=== PATIENT | male | born 1985 | race Caucasian/White ===

== ENCOUNTER 2022-09-17 01:10 | Inpatient (IN) | payer MEDICAID ==
[~2022-09-17] VITALS: Ht 182.9 cm; Wt 81.6 kg
[2022-09-17] MEDS ORDERED: HALOPERIDOL 5 MG TABLET PO PRN (01:30)
[2022-09-17] MEDS ORDERED: ZOLPIDEM TARTRATE 10 MG TABLET PO PRN (01:30)
[2022-09-17 02:01] LABS: GLUCOMETER DEV NAME(LOC) POC.BV
[2022-09-17 03:58] VITALS: BP 132/80
[2022-09-17] MEDS ORDERED: INFLUENZA VIRUS VACCINE QVS 2022-23 (6MO+)/PF 60 MCG/0.5 ML SYRINGE IM. ONE (04:00)
[2022-09-17 07:40] LABS: BASOPHILS % (AUTO) 1.1 % (0.0-2.0); EOSINOPHILS % (AUTO) 6.7 % (1.0-6.0); HEMATOCRIT 38.8 % (41-53); HEMOGLOBIN 13.4 g/dL (13.5-17.5); LYMPHOCYTES # (AUTO) 1.7 K/uL (1.0-4.8); LYMPHOCYTES % (AUTO) 28.1 % (22.0-44.0); MEAN CORPUSCULAR HGB CONC 34.6 G/dL (31.0-37.0); MEAN CORPUSCULAR VOLUME 90 fL (80-100); MONOCYTES # (AUTO) 0.8 K/uL (0.1-1.0); MONOCYTES % (AUTO) 14.1 % (2.0-9.0); PLATELET COUNT (AUTO) 264 K/uL (150-450); RED BLOOD CELL COUNT(AUTO) 4.34 MIL/uL (4.50-5.90); RED CELL DISTRIBUTION WIDTH 13.1 % (11.5-14.5)
[2022-09-17 07:56] LABS: HEMOGLOBIN A1C 5.3 % (3.8-5.6)
[2022-09-17 08:08] LABS: ALANINE AMINOTRANSFERASE 37 U/L (12-78); ALBUMIN 3.2 g/dL (3.4-5.0); ALKALINE PHOSPHATASE 69 U/L (46-116); ANION GAP 8 mmol/L (8-16); ASPARTATE AMINOTRANSFERASE 24 U/L (15-37); BILIRUBIN,TOTAL 0.2 mg/dL (0.1-1.0); CALCIUM, TOTAL 8.6 mg/dL (8.8-10.5); CARBON DIOXIDE 27 mmol/L (22-29); CHLORIDE 104 mmol/L (98-107); CHOL/HDL RATIO 2.8 (4.2-7.3); CHOLESTEROL 112 mg/dL (131-200); CREATININE 0.94 mg/dL (0.60-1.30); FREE T4 (FREE THYROXINE) 0.94 ng/dL (0.76-1.46); GLUCOSE,RANDOM 102 mg/dL (70-110); HDL CHOLESTEROL 40 mg/dL (40-60); LDL CHOL (CALC.) 50 mg/dL (0-130); POTASSIUM 4.1 mmol/L (3.5-5.1); SODIUM SERUM 139 mmol/L (136-145); THYROID STIMULATING HORMONE 1.59 uIU/mL (0.36-3.74); TOTAL PROTEIN, SERUM 6.4 g/dL (6.4-8.2); TRIGLYCERIDES 110 mg/dL (15-150); UREA NITROGEN, BLOOD 14 mg/dL (7-18)
[2022-09-17 08:09] LABS: GLOMERULAR FILTR. RATE CALC > 60 mL/min (>60)
[2022-09-17 08:19] VITALS: BP 136/92
[2022-09-17] MEDS: ARIPiprazole 5 MG TABLET PO SCH (10:31)
[2022-09-17 20:14] VITALS: BP 128/77
[2022-09-17] MEDS ORDERED: NICOTINE 14 MG/24 HOUR PATCH TD PRN (21:00)
[2022-09-17] MEDS ORDERED: ALBUTEROL SULFATE HFA 90 MCG/PUFF 8 GM INHALER IH PRN (21:00)
[2022-09-17] MEDS ORDERED: DOCUSATE SODIUM 100 MG CAPSULE PO PRN (21:00)
[2022-09-17] MEDS ORDERED: PETROLATUM,WHITE 28 GM JELLY TP PRN (21:00)
[2022-09-17] MEDS ORDERED: LOPERAMIDE HCL 2 MG CAPSULE PO PRN (21:00)
[2022-09-17] MEDS ORDERED: IBUPROFEN 400 MG TABLET PO PRN (21:00)
[2022-09-17] MEDS ORDERED: CloNIDine HCL 0.1 MG TABLET PO PRN (21:00)
[2022-09-17] MEDS ORDERED: MAG HYDROX/AL HYDROX/SIMETH ES 30 ML SUSPENSION UDCUP PO PRN (21:00)
[2022-09-17] MEDS ORDERED: GuaiFENesin/D-METHORPHAN [SUGAR-FREE] 200-20MG/10 ML SYRUP UDCUP PO PRN (21:00)
[2022-09-17] MEDS ORDERED: MAGNESIUM HYDROXIDE SUSPENSION 30 ML UDCUP PO PRN (21:00)
[2022-09-17] MEDS ORDERED: ACETAMINOPHEN 325 MG TABLET PO PRN (21:00)
[2022-09-17] MEDS ORDERED: ONDANSETRON HCL 4 MG TABLET PO PRN (21:00)
[2022-09-18 00:38] VITALS: BP 138/94
[2022-09-18] MEDS: LORazepam 2 MG TABLET PO PRN (00:42)
[2022-09-18] MEDS: ARIPiprazole 5 MG TABLET PO SCH (08:55)
[2022-09-18 10:24] VITALS: BP 124/88
[2022-09-18 20:51] VITALS: BP 109/64
[2022-09-19 08:48] VITALS: BP 123/75
[2022-09-19] MEDS: ARIPiprazole 5 MG TABLET PO SCH (08:52)
[2022-09-19 20:31] VITALS: BP 123/81
[2022-09-20 08:33] VITALS: BP 109/86
[2022-09-20] MEDS: ARIPiprazole 5 MG TABLET PO SCH (09:00)
[2022-09-20 20:20] VITALS: BP 106/86
[2022-09-21 08:31] VITALS: BP 121/90
[2022-09-21] MEDS: ARIPiprazole 5 MG TABLET PO SCH (09:00)
[2022-09-21] MEDS ORDERED: POTASSIUM CHLORIDE 10% 40 MEQ/30 ML LIQUID UDCUP PO ONE (09:00)
[2022-09-21] MEDS: LORazepam 2 MG TABLET PO PRN (20:30)
[2022-09-21 21:06] VITALS: BP 130/88
[2022-09-21 22:23] VITALS: BP 130/80
[2022-09-22] MEDS: ARIPiprazole 5 MG TABLET PO SCH (09:00)
[2022-09-22 09:01] LABS: GLUCOMETER DEV NAME(LOC) POC.BV
[2022-09-22 09:11] VITALS: BP 134/89
[2022-09-22] MEDS ORDERED: ARIP5TAB37 PO ×2 (12:31→12:53)
== END 2022-09-22 14:27 | disposition home or self-care (01) | DRG 751 ==
LOC: B2S 01:30
PROVIDERS: ADMIT Psychiatry & Neurology Child & Adolescent Psychiatry; ATTEND Psychiatry & Neurology Child & Adolescent Psychiatry
DX: F33.2 Major depressive disorder, recurrent severe without psychotic features (principal); R45.851 Suicidal ideations; D64.9 Anemia, unspecified; F41.9 Anxiety disorder, unspecified; G47.00 Insomnia, unspecified; Z20.822 Contact with and (suspected) exposure to COVID-19; Z28.21 Immunization not carried out because of patient refusal
CPT/HCPCS: 80053; 80061; 83036; 84439; 84443; 85025; 86592; G0480

== ENCOUNTER 2024-07-27 18:42 | Inpatient (IN) | payer MEDICAID ==
[~2024-07-27] VITALS: Ht 182.9 cm; Wt 90.3 kg
[~2024-07-27 18:42] MED LIST: ARIP10TA38 PO; ARIP5TAB37 PO; MELA10CA PO; MELA5TAB40 PO
[2024-07-27 19:39] VITALS: BP 134/76; PULSE 102; RESP 18; TEMP 97.4; O2SAT 96
[2024-07-27 20:31] LABS: GLUCOMETER DEV NAME(LOC) POC.BV; POC SARS-COV2 AG, FIA NEGATIVE (NEGATIVE)
[2024-07-27] MEDS ORDERED: HALOPERIDOL 5 MG TABLET PO PRN (20:45)
[2024-07-27] MEDS ORDERED: LORazepam 2 MG TABLET PO PRN (20:45)
[2024-07-27 21:31] VITALS: BP 144/88; PULSE 83; RESP 16; TEMP 97.7; O2SAT 99
[2024-07-27] MEDS: ZOLPIDEM TARTRATE 10 MG TABLET PO PRN (22:40)
[2024-07-28 08:17] VITALS: BP 128/75; PULSE 85; RESP 16; TEMP 97.9; O2SAT 97
[2024-07-28 08:45] LABS: BASOPHILS % (AUTO) 0.4 % (0.0-2.0); EOSINOPHILS % (AUTO) 4.4 % (1.0-6.0); HEMATOCRIT 45.6 % (41-53); HEMOGLOBIN 15.3 g/dL (13.5-17.5); LYMPHOCYTES # (AUTO) 2.4 K/uL (1.0-4.8); LYMPHOCYTES % (AUTO) 25.9 % (22.0-44.0); MEAN CORPUSCULAR HEMOGLOBIN 30.4 pg (26.0-34.0); MEAN CORPUSCULAR HGB CONC 33.5 G/dL (31.0-37.0); MEAN CORPUSCULAR VOLUME 91 fL (80-100); MONOCYTES # (AUTO) 0.9 K/uL (0.1-1.0); MONOCYTES % (AUTO) 9.4 % (2.0-9.0); NEUTROPHILS # (AUTO) 5.6 K/uL (1.8-7.7); NEUTROPHILS % (AUTO) 59.9 % (40.0-70.0); PLATELET COUNT (AUTO) 300 K/uL (150-450); RED BLOOD CELL COUNT(AUTO) 5.03 MIL/uL (4.50-5.90); RED CELL DISTRIBUTION WIDTH 13.6 % (11.5-14.5); WHITE BLOOD COUNT (AUTO) 9.3 K/uL (4.5-11.0)
[2024-07-28 08:57] LABS: HEMOGLOBIN A1C 5.2 % (3.8-5.6)
[2024-07-28 09:27] LABS: ALANINE AMINOTRANSFERASE 24 U/L (12-78); ALBUMIN 4.4 g/dL (3.4-5.0); ALKALINE PHOSPHATASE 64 U/L (46-116); ANION GAP 15 mmol/L (8-16); ASPARTATE AMINOTRANSFERASE 22 U/L (15-37); BILIRUBIN,TOTAL 0.9 mg/dL (0.1-1.0); CALCIUM, TOTAL 9.2 mg/dL (8.8-10.5); CARBON DIOXIDE 23 mmol/L (22-29); CHLORIDE 99 mmol/L (98-107); CHOL/HDL RATIO 3.6 (4.2-7.3); CHOLESTEROL 184 mg/dL (131-200); CREATININE 1.14 mg/dL (0.60-1.30); FREE T4 (FREE THYROXINE) 1.08 ng/dL (0.76-1.46); GLOMERULAR FILTR. RATE CALC > 60 mL/min (>60); GLUCOSE,RANDOM 111 mg/dL (70-110); HDL CHOLESTEROL 51 mg/dL (40-60); LDL CHOL (CALC.) 110 mg/dL (0-130); POTASSIUM 3.8 mmol/L (3.5-5.1); SODIUM SERUM 137 mmol/L (136-145); THYROID STIMULATING HORMONE 2.52 uIU/mL (0.36-3.74); TOTAL PROTEIN, SERUM 8.1 g/dL (6.4-8.2); TRIGLYCERIDES 114 mg/dL (15-150); UREA NITROGEN, BLOOD 14 mg/dL (7-18)
[2024-07-28] MEDS ORDERED: DOCUSATE SODIUM 100 MG CAPSULE PO PRN (10:30)
[2024-07-28] MEDS ORDERED: LOPERAMIDE HCL 2 MG CAPSULE PO PRN (10:30)
[2024-07-28] MEDS ORDERED: MAG HYDROX/ALUMINUM HYD/SIMETH ES 30 ML SUSPENSION UDCUP PO PRN (10:30)
[2024-07-28] MEDS ORDERED: ALBUTEROL SULFATE HFA 90 MCG/PUFF 8 GM INHALER IH PRN (10:30)
[2024-07-28] MEDS ORDERED: IBUPROFEN 400 MG TABLET PO PRN (10:30)
[2024-07-28] MEDS ORDERED: MAGNESIUM HYDROXIDE SUSPENSION 30 ML UDCUP PO PRN (10:30)
[2024-07-28] MEDS ORDERED: CloNIDine HCL 0.1 MG TABLET PO PRN (10:30)
[2024-07-28] MEDS ORDERED: NICOTINE 14 MG/24 HOUR PATCH TD PRN (10:30)
[2024-07-28] MEDS ORDERED: ONDANSETRON 4 MG TABLET PO PRN (10:30)
[2024-07-28] MEDS ORDERED: PETROLATUM,WHITE 28 GM JELLY TP PRN (10:30)
[2024-07-28] MEDS ORDERED: ACETAMINOPHEN 325 MG TABLET PO PRN (10:30)
[2024-07-28] MEDS ORDERED: GuaiFENesin/D-METHORPHAN [SUGAR-FREE] 200-20MG/10 ML SYRUP UDCUP PO PRN (10:30)
[2024-07-28] MEDS: ARIPiprazole 15 MG TABLET PO SCH (10:51)
[2024-07-28] MEDS: SERTRALINE HCL 50 MG TABLET PO SCH (10:51)
[2024-07-28 21:27] VITALS: BP 108/89; PULSE 71; RESP 18; TEMP 97.2; O2SAT 98
[2024-07-28] MEDS: TraZODone HCL 100 MG TABLET PO SCH (21:42)
[2024-07-28] MEDS: MELATONIN 5 MG TABLET PO SCH (21:42)
[2024-07-29 08:16] VITALS: BP 145/82; PULSE 77; RESP 18; TEMP 97.6; O2SAT 96
[2024-07-29 08:54] LABS: CHOL/HDL RATIO 3.9 (4.2-7.3); THYROID STIMULATING HORMONE 0.98 uIU/mL (0.36-3.74)
[2024-07-29 10:04] LABS: HEMOGLOBIN A1C 5.1 % (3.8-5.6)
[2024-07-29] MEDS: TraZODone HCL 100 MG TABLET PO SCH (20:09)
[2024-07-29 21:35] VITALS: BP 143/85; PULSE 77; RESP 18; TEMP 97.8; O2SAT 97
[2024-07-30 08:05] VITALS: BP 118/69; PULSE 74; RESP 19; TEMP 98; O2SAT 98
[2024-07-30 20:11] VITALS: BP 128/93; PULSE 79; RESP 18; TEMP 97.2; O2SAT 95
[2024-07-30] MEDS: ARIPiprazole 15 MG TABLET PO SCH (20:46)
[2024-07-31 08:13] VITALS: BP 132/94; PULSE 78; RESP 19; TEMP 97.5; O2SAT 96
[2024-07-31 20:42] VITALS: BP 129/82; PULSE 66; RESP 18; TEMP 97.5; O2SAT 97
[2024-08-01 08:12] VITALS: BP 132/94; PULSE 83; RESP 19; TEMP 97.5; O2SAT 96
[2024-08-01 08:19] LABS: APPEARANCE,URINE CLEAR (CLEAR); BILIRUBIN,URINE NEGATIVE (NEGATIVE); COLOR,URINE COLORLESS (YELLOW); GLUCOSE, URINE (UA) NEGATIVE (NEGATIVE); KETONES,URINE NEGATIVE (NEGATIVE); LEUKOCYTE ESTERASE ,URINE NEGATIVE (NEGATIVE); NITRATE,URINE NEGATIVE (NEGATIVE); OCCULT BLOOD,URINE NEGATIVE (NEGATIVE); PROTEIN,URINE NEGATIVE (NEGATIVE); SPECIFIC GRAVITIY, URINE 1.005 (1.003-1.030); UROBILINOGEN,URINE <=1.0 mg/dL (<=1.0)
[2024-08-01 08:24] LABS: ALCOHOL, URINE DRUG SCREEN NEGATIVE (NEGATIVE); AMPHET/METH SCREEN,URINE NEGATIVE (NEGATIVE); BARBITURATE SCREEN, URINE NEGATIVE (NEGATIVE); BENZODIAZEPINES SCREEN,URINE NEGATIVE (NEGATIVE); CANNABINOID SCREEN,URINE POSITIVE (NEGATIVE); COCAINE SCREEN,URINE NEGATIVE (NEGATIVE); METHADONE SCREEN, URINE NEGATIVE (NEGATIVE); OPIATE SCREEN,URINE NEGATIVE (NEGATIVE); PHENCYCLIDINE SCREEN,URINE NEGATIVE (NEGATIVE)
[2024-08-01] MEDS ORDERED: ARIP15TA27 PO (10:51)
[2024-08-01] MEDS ORDERED: MELA5TAB40 PO (10:51)
[2024-08-01] MEDS ORDERED: SERT-439 PO (10:51)
[2024-08-01] MEDS ORDERED: TRAZ-257 PO (10:51)
== END 2024-08-01 11:50 | disposition home or self-care (01) | DRG 750 ==
LOC: B2S 20:41
PROVIDERS: ADMIT Psychiatry & Neurology Child & Adolescent Psychiatry; ATTEND Psychiatry & Neurology Child & Adolescent Psychiatry
PROC: GZHZZZZ Group Psychotherapy (ICD-10-PCS; principal; 2024-07-28)
PROC: GZ52ZZZ Individual Psychotherapy, Cognitive (ICD-10-PCS; 2024-07-28)
DX: F25.1 Schizoaffective disorder, depressive type (principal); G47.00 Insomnia, unspecified; K59.00 Constipation, unspecified; R73.9 Hyperglycemia, unspecified; I10 Essential (primary) hypertension; Z20.822 Contact with and (suspected) exposure to COVID-19
CPT/HCPCS: 80053; 80061; 80307; 81003; 83036; 84439; 84443; 85025; 87081